=== PATIENT | female | born 1990 | race Caucasian/White ===

== ENCOUNTER 2019-09-04 08:51 | Emergency (ER) | payer BC, SELFPAY ==
[2019-09-04 08:54] VITALS: BP 126/66; PULSE 92; RESP 16; TEMP 36.8; O2SAT 100
--- NOTE | 2019-09-04 09:15 | W.ED.GENAD ---
Discharge Plan Disposition Patient Disposition: HOME Discharge Details Chief Complaint: Trauma Clinical Impression: Fall, Chest wall contusion, Early stage of Primary Care Provider: None,None ED Provider: Norman Salgado Home Meds and New Rx's Prescriptions: Continued PNV cmb#95-ferrous fumarate-FA [] 28 mg iron- 800 mcg Tablet 1 tab PO DAILY RF: 0 Discharge Instructions Instructions: Contusion in Adults (ED), Fall Prevention (ED) Additional Instructions: Please return to the emergency department immediately for abdominal pain nausea vomiting loss of consciousness vaginal bleeding or any other concern. Please follow-up on the referral for gynecologic care provided here in the emergency department today thank you for using [facility]. Referrals: [facility] [Provider Group] Discharge Data Discharge Date/Time-TO BE ENTERED AT DEPARTURE: 09/04/19 10:08 Medical Decision Making 29-year-old female status post fall from standing mild rib pain no concern for fracture 5 weeks gestation by dates no abdominal pain no vaginal bleeding no contractions will check a UA beta-hCG and observe in the emergency department for short time. Expect discharge with early follow-up and strict return instructions. Patient observed in emergency department no change in complaints feeling well no abdominal pain repeat abdominal exam normal soft nontender hCG positive UA small trace leuk esterase with multiple squames not consistent with infection will defer treatment patient given strict return to emergency department instructions and will follow up with women's care. HPI 29-year-old female G2, P1 5 weeks by dates has yet to establish care. A.m. today patient dropping of her child at daycare slipped fell backwards striking her head right shoulder and side. No loss of consciousness no abdominal pain no headache no nausea vomiting. No vaginal spotting or bleeding no contractions no lower back pain. Symptoms began this morning no acute nonradiating nothing makes them better or worse slowly improving over time General Date/Time Provider Initiated Documentation: 09/04/19 09:08. Related Data Home Medications Medication Instructions Recorded Confirmed PNV cmb#95-ferrous fumarate-FA 1 tab PO DAILY 09/04/19 09/04/19 [] Allergies Allergy/AdvReac Type Severity Reaction Status Date / Time Sulfa (Sulfonamide Allergy Hives Unverified 09/04/19 08:54 Antibiotics) General Stated Complaint: Trauma TANISHA: 3 Review of Systems Narrative: No shortness of breath chest pain nausea vomiting diarrhea loss of consciousness fever chills. All systems reviewed & are unremarkable except as noted in HPI and below [facility] Social History Smoking/Tobacco Use Status: Former Tobacco Use Alcohol Intake: former Drug use: Current Sobriety Do you feel safe at home: Yes Do you feel safe in your relationship?: Yes Exam Narrative Exam Narrative: Pulse oximetry reviewed by me and is normal [] Constitutional: Pt is in no acute distress. pt is well appearing. oriented to person, place, and time. Eyes: conjunctivae are normal. Pupils are equal, round, and reactive to light. No scleral icterus. extraocular muscles are intact Ears/Nose/Mouth/Throat: mucus membranes are moist. Musculoskeletal: neck is supple. normal range of motion in all extremities. Cardiovascular: Normal rate and rhythm. No lower extremity edema [] Respiratory: effort is normal . pt exhibits no stridor or respiratory distress. [] GastrointestinaI: abdomen soft, +BS, nontender, -rebound, -guarding. Neurological: alert and oriented to person, place, and time. he has normal strength, no tremor. Skin: Skin is warm and dry. he is not diaphoretic. Distal perfusion in tact, warm extremities, cap refill ? 2 seconds. Hem/Lymph/Imm: No cervical LAD, no goiter, no conjunctival pallor Psych: normal mood and affect. behavior is normal Triage and nurse notes reviewed.[] Const General: cooperative, healthy appearing, comfortable, no acute distress, well developed, well groomed and acute distress Orientation: alert, awake and oriented x3 Eyes General: appearance normal, both eyes and all related structures Visual Shannon: normal visual shannon by confrontation Alignment and Position: alignment normal Periorbital: periorbital findings normal Eyelids: eyelids normal Conjunctivae: conjunctivae normal Sclera: sclerae normal Pupils: PERRL EOM: EOM intact bilaterally Chest Chest: normal inspection of the chest and normal palpation of entire chest wall Breast palpation: other Other: Mild tenderness to palpation of the right chest wall no crepitus no skin changes no deformity no ecchymosis no erythema Resp Effort & Inspection: normal respiratory effort and able to speak in complete sentences Cardio Jugular venous pressure: no JVD Rate: regular rate Rhythm: regular rhythm Skin General skin exam: no rashes or lesions noted and elasticity normal Neuro General: alert, awake and oriented x3 Course Vital Signs Vital signs: Vital Signs Temperature 36.8 C 09/04/19 08:54 Pulse 92 H 09/04/19 08:54 Respiratory Rate 16 09/04/19 08:54 Blood Pressure 126/66 09/04/19 08:54 Pulse Oximetry 100 09/04/19 08:54 Temperature 36.8 C 09/04/19 08:54 Pulse 92 H 09/04/19 08:54 Respiratory Rate 16 09/04/19 08:54 Respiratory Effort Non-Labored 09/04/19 09:09 Respiratory Depth Normal 09/04/19 09:09 Respiratory Pattern Normal 09/04/19 09:09 Blood Pressure 126/66 09/04/19 08:54 Blood Pressure Position Sitting 09/04/19 08:54 Pulse Oximetry 100 09/04/19 08:54 Oxygen Delivery Method Room Air 09/04/19 08:54 Oxygen Flow Rate 0 09/04/19 08:54 Pain Level 5 09/04/19 08:54
[2019-09-04 09:37] LABS: Bilirubin Negative (Negative); Blood Trace-intact (Negative); Clarity Sl Cloudy (Clear); Glucose Negative (Negative); Ketones Negative (Negative); Leukocyte Esterase Trace (Negative); Nitrite Negative (Negative); Specific Gravity >= 1.030 (1.005-1.025); Urobilinogen 0.2 EU/dL (Up TO 0.2); pH 5.5 (5-8)
[2019-09-04 09:48] LABS: Bacteria Few HPF (Negative); Epithelial Cells Moderate HPF (Negative); RBC 0-2 HPF (0-2); WBC 0-2 HPF (0-5)
[2019-09-04 09:49] LABS: C & S Indicated? No/Sq. Contamination; Crystals Negative HPF (Negative); Mucus Trace (Negative)
[2019-09-04 09:57] VITALS: BP 108/64; PULSE 71; RESP 16; TEMP 36.6; O2SAT 100
== END 2019-09-04 10:08 | disposition home or self-care (01) ==
PROVIDERS: Emergency Provider Emergency Medicine
DX: S20.221A Contusion of right back wall of thorax, initial encounter (principal); W19.XXXA Unspecified fall, initial encounter; Z33.1 Pregnant state, incidental
CPT/HCPCS: 81025; 99282; 81003; 81015

== ENCOUNTER 2020-09-09 09:39 | Outpatient (CLI) | payer MEDICAID, SELFPAY ==
[2020-09-09 12:28] LABS: ALT 30 U/L (14-59); AST 16 U/L (15-37); Albumin 4.4 g/dL (3.4-5.0); Alkaline Phosphatase 94 U/L (46-116); Anion Gap 8.5 mmol/L (3-11); BUN 31 mg/dL (7-18); Bilirubin, Total 0.5 mg/dL (0.2-1.0); CO2 25.5 mmol/L (21.0-32.0); CREATININE 1.12 mg/dL (0.55-1.02); Calcium 9.4 mg/dL (8.5-10.1); Chloride 105 mmol/L (98-107); Estimated GFR 57.12 (mL/min/1.73m2); Glucose 76 mg/dL (74-106); Potassium 4.5 mmol/L (3.5-5.1); Sodium 139 mmol/L (136-145)
== END 2020-09-09 09:59 ==
DX: F41.8 Other specified anxiety disorders (principal); Z00.00 Encounter for general adult medical examination without abnormal findings
CPT/HCPCS: 36415; 80053